=== PATIENT | male | born 1985 | race Caucasian/White ===

== ENCOUNTER 2016-08-30 22:03 | Emergency (ER) | payer OTHER ==
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
[~2016-08-30 22:03] MED LIST: BACTRIM DS TABL1 TA1 PO; DICLOFENAC PO; KEFLEX500 MG PO; NEXIUM PO; NO MEDICATIONS; PHENERGAN25 M1 PO; PRILOSEC20 M1 PO; TESSALON200 MG PO
== END 2016-08-30 23:55 | disposition home or self-care (01) ==
LOC: SED 22:03
DX: S80.01XA Contusion of right knee, initial encounter (principal); Z98.890 Other specified postprocedural states; V49.88XA Car occupant (driver) (passenger) injured in other specified transport accidents, initial encounter; Y92.410 Unspecified street and highway as the place of occurrence of the external cause
CPT/HCPCS: 29530; 72040; 73030; 73110; 73562; 99284

== ENCOUNTER 2016-12-28 23:59 | Emergency (ER) | payer OTHER ==
[~2016-12-28] VITALS: Ht 185.4 cm; Wt 120.2 kg
--- NOTE | ~2016-12-28 | CR142 ---
[facility] A Service [facility] RADIOLOGY TEXT RESULTS PATIENT: KAVIN PRADO JR LOCATION: SED : 84 UNIT #: [id number] AGE: [address]: TREVON FIELD SEX: M ORDER DR: [id number] [place] [id number] E MR#: [id number] Acc #: [id number] NAME: KAVIN PRADO JR : 1985 SEX: M STUDY DATE/TIME: 12/29/2016 0:37 UNIT: SED ROOM: STUDY DESCRIPTION: CR Hand Min 3 Views Rt Attending Physician: Trveon Field Ordering Physician: Physician Non-Staff Primary Care Physician: Shaquille Contreras Aprn MEDICAL IMAGING REPORT This report is preliminary unless electronic signature is present. EXAM 3 views right hand DATE: 12/29/2016 HISTORY 31-year-old male with fifth finger swelling for 2 days. No known injury. COMPARISON None. FINDINGS Soft tissue swelling is seen about the right fifth finger centered at around the proximal interphalangeal joint. No fracture. No dislocation. No retained radiopaque foreign body. No subcutaneous gas is identified. No significant osteophytic change or evidence of osteomyelitis. IMPRESSION Soft tissue swelling centered around the proximal interphalangeal joint of the right fifth finger. No acute osseous abnormality. No retained radiopaque foreign body. Dictated by... Juliet Stahl M.D. THIS IS AN ELECTRONICALLY VERIFIED REPORT Juliet Stahl M.D. at 12/29/2016 9:49 PM [facility]/yonis TD: 12/29/2016 02:11 JOB #: [id number] [facility] A Service [facility] RADIOLOGY TEXT RESULTS PATIENT: KAVIN PRADO JR LOCATION: SED : 84 UNIT #: [id number] AGE: [address]: TREVON FIELD SEX: M ORDER DR: MEDICAL IMAGING REPORT Page 1 of 1
== END 2016-12-29 01:30 | disposition home or self-care (01) ==
LOC: SED 23:59
DX: M65.9 Synovitis and tenosynovitis, unspecified (principal); K21.9 Gastro-esophageal reflux disease without esophagitis; Z98.890 Other specified postprocedural states; Z79.899 Other long term (current) drug therapy
CPT/HCPCS: 73130; 90471; 90715; 99283